=== PATIENT | female | born 1945 | race Caucasian/White ===

== ENCOUNTER → 2017-12-19 | Outpatient (CLI) | payer MEDICARE ==
[~2017-12-19] MED LIST: BUPR300T55 PO; LANS30CA70 PO; LEV500 PO; LOR5/325 PO; SITA100T9 PO; VALS40TA6 PO; VITAMINS; [UNRECOGNIZED DRUG - CODE] PO
--- NOTE | 2017-12-19 17:19 | RADIOLOGY IMAGING REPORT ---
FACILITY: [facility] - [place] PATIENT NAME: DONI MORALES : [id number] MR: [id number] V: [id number] EXAM DATE: [id number] ORDERING PHYSICIAN: STEPHANIE REBOLLEDO TECHNOLOGIST: Alexa Gomez PROCEDURE:BILATERAL DIGITAL SCREENING MAMMOGRAM WITH CAD ASSISTED INTERPRETATION & 3D TOMOSYNTHESIS COMPARISON:Prior mammograms 12/17/16, 11/21/15, 11/07/14, 10/31/13, 10/19/12, 10/11/11 INDICATIONS:SCREENING FINDINGS: Moderately heterogeneous fibroglandular tissue is seen throughout the breasts. The parenchymal pattern has remained stable allowing for difference in mammographic technique & patient positioning. There is no evidence of malignant appearing mass, malignant appearing calcifications or other secondary sign of malignancy in either breast. DIAGNOSTIC CATEGORY 2--BENIGN FINDING. RECOMMENDATIONS: ROUTINE MAMMOGRAM AND CLINICAL EVALUATION. IMPRESSION: BIRADS 2: Benign finding No significant abnormality is seen Dictated by: Marli To M.D. on 12/19/2017 at 15:56 Transcribed by: ALEXIA on 12/19/2017 at 16:06 Approved by: Marli To M.D. on 12/19/2017 at 17:17 [facility]
== END ==
LOC: MAMO 00:52
PROVIDERS: ATTEND Physician Assistant
DX: Z12.31 Encounter for screening mammogram for malignant neoplasm of breast (principal)
CPT/HCPCS: 77063; 77067

== ENCOUNTER → 2018-12-21 | Outpatient (CLI) | payer MEDICARE ==
--- NOTE | 2018-12-22 09:12 | RADIOLOGY IMAGING REPORT ---
FACILITY: [facility] - [place], [place] PATIENT NAME: DONI MORALES : [id number] MR: [id number] V: [id number] EXAM DATE: ORDERING PHYSICIAN: STEPHANIE REBOLLEDO TECHNOLOGIST: Mackenzie Rosen PROCEDURE:BILATERAL DIGITAL SCREENING MAMMOGRAM WITH CAD ASSISTED INTERPRETATION & 3D TOMOSYNTHESIS COMPARISON:Prior mammograms 12/19/17, 12/17/16, 11/21/15, 11/07/14, 10/31/13, 10/19/12. INDICATIONS:screening FINDINGS: There are areas of scattered fibroglandular density throughout the breasts. Scattered course calcifications in the upper outer quadrants of both breasts are again seen. These have gradually increased when compared to 2012 although have a benign morphology. DIAGNOSTIC CATEGORY 2--BENIGN FINDING. RECOMMENDATIONS: ROUTINE MAMMOGRAM AND CLINICAL EVALUATION. IMPRESSION: BIRADS 2: Benign finding. No significant abnormality is seen. Dictated by: Marli To M.D. on 12/21/2018 at 16:57 Transcribed by: ALEXIA on 12/22/2018 at 8:52 Approved by: Marli To M.D. on 12/22/2018 at 9:11 [facility]
== END ==
LOC: MAMO 00:25
PROVIDERS: ATTEND Physician Assistant
DX: Z12.31 Encounter for screening mammogram for malignant neoplasm of breast (principal)
CPT/HCPCS: 77063; 77067